=== PATIENT | female | born 1950 | race Hispanic/Latino ===

== ENCOUNTER 2017-07-16 05:56 | Day surgery (SDC) | payer BC, MEDICARE ==
[2017-07-16] MEDS ORDERED: ANCEF/STERILE WATER 2 GM/20 ML 2 GM/20 ML SYRINGE IV NR (06:00)
[2017-07-16] MEDS ORDERED: NACL 0.9% 1000 ML 1,000 ML IV SCH (06:00)
[2017-07-16 07:47] LABS: Basophils % (Auto) 0.6 % (0.0-1.8); Eosinophils % (Auto) 1.7 % (0.0-4.3); Hematocrit 46.1 % (30.3-42.9); Hemoglobin 15.3 gm/dl (10.1-14.3); Mean Corpuscular HGB Conc 33 % (30-34); Mean Corpuscular Hemoglobin 31 pg (28-32); Mean Corpuscular Volume 93 fl (79-97); Platelet Count 213 K/mm3 (140-440); Red Blood Count 4.98 M/mm3 (3.65-5.03); Red Cell Distribution Width 15.1 % (13.2-15.2); White Blood Count 7.6 K/mm3 (4.5-11.0)
[2017-07-16 07:57] LABS: Anion Gap 16 mmol/L; BUN/Creatinine Ratio 30; Blood Urea Nitrogen 18 mg/dL (7-17); Calcium 9.3 mg/dL (8.4-10.2); Carbon Dioxide 27 mmol/L (22-30); Chloride 98.6 mmol/L (98-107); Glucose 112 mg/dL (65-100); Potassium 4.2 mmol/L (3.6-5.0); Sodium 137 mmol/L (137-145)
[2017-07-16] MEDS ORDERED: NACL 0.9% 500 ML 500 ML IV SCH (08:00)
[2017-07-16] MEDS ORDERED: HEPARIN/NS 5000 UNIT/500ML(CATH LAB) 1,000 ML IR ONE (08:26)
[2017-07-16] MEDS ORDERED: ANCEF/STERILE WATER 2 GM/20 ML 2 GM/20 ML SYRINGE IV ONE (08:27)
[2017-07-16] MEDS ORDERED: NACL 0.9% 500 ML 0 ML ONE (08:28)
[2017-07-16] MEDS: VERSED ONE ×6 (08:48→10:01)
[2017-07-16] MEDS: SUBLIMAZE ONE ×5 (08:48→10:18)
[2017-07-16] MEDS: XYLOCAINE 2% INFILTRATI ONE ×2 (08:48→08:55)
[2017-07-16] MEDS ORDERED: BENADRYL ONE (08:56)
[2017-07-16] MEDS ORDERED: SUBLIMAZE ONE ×2 (09:06→09:14)
[2017-07-16] MEDS ORDERED: VERSED ONE (09:06)
[2017-07-16] MEDS: HEPARIN 10,000 UNITS/10 ML ONE ×2 (09:07→10:01)
[2017-07-16] MEDS ORDERED: HEPARIN/NS 5000 UNIT/500ML(CATH LAB) 500 ML IR ONE (09:40)
--- NOTE | 2017-07-16 10:49 | Post Operative Note ---
Date of procedure: 07/16/17 Pre-op diagnosis: left common iliac stenosis Post-op diagnosis: same Findings: 1. Lt JESSE GREEN CHAIN MARKER 2. RT JESSE stenosis Procedure: 1. Ultrasound guided access of the right and left common femoral arteries 2. Bilateral iliofemoral arteriography 3. Distal aortography 4. Bilateral iliofemoral and distal aortic intravascular ultrasound examination 5. Deployment of a VBX balloon expandable stent in the Rt JESSE 6. Deployment of a VBX balloon expandable stent in the Lt JESSE x2 7. Balloon angioplasty of the bilateral common iliac arteries 8. Bilateral DISTILLERY MILLER closure with a Perclose device. Anesthesia: other (Moderate sedation 8:56 to 10:30) Surgeon: SASHA BROWN Estimated blood loss: minimal Pathology: none Condition: stable Disposition: observation
[2017-07-16] MEDS ORDERED: NORCO 7.5/325 PO PRN (10:52)
[2017-07-16] MEDS ORDERED: DILAUDID IV PRN ×3 (10:53→13:00)
[2017-07-16] MEDS ORDERED: ZOFRAN IV PRN (10:53)
[2017-07-16] MEDS ORDERED: DILAUDID ONE ×2 (12:02)
--- NOTE | 2017-07-16 13:19 | Short Stay Summary ---
Short Stay Documentation Date of service: 07/16/17 - History H&P: obtained from office - Allergies and Medications Current Medications: Allergies Sulfa (Sulfonamide Antibiotics) Allergy (Verified 07/16/17 07:28) Rash Home Medications Medication Instructions Recorded Confirmed Last Taken Type Amlodipine Besylate [Norvasc] 5 mg PO QDAY 07/16/17 07/16/17 07/15/17 History Aspirin [Aspirin EC] 325 mg PO QDAY 07/16/17 07/16/17 07/15/17 History Atorvastatin Calcium [Lipitor] 20 mg PO QDAY 07/16/17 07/16/17 07/15/17 History Zestoretic 20-12.5 mg 2 tab PO QDAY 07/16/17 07/16/17 07/15/17 History Active Medications Acetaminophen/Hydrocodone Bitart ([place] 7.5/325) 1 each PO Q4H PRN PRN Reason: Pain, Moderate (4-6) Hydromorphone HCl (Dilaudid) 1 mg IV Q2H PRN PRN Reason: Pain , Severe (7-10) Last Admin: 07/16/17 12:05 Dose: 1 mg Cefazolin Sodium (Ancef/Sterile Water 2 Gm/20 Ml) 2 gm in 20 mls @ 80 mls/hr IV PREOP NR PRN Reason: Protocol Stop: 07/16/17 23:59 Sodium Chloride (Nacl 0.9% 500 Ml) 500 mls @ 50 mls/hr IV DIRECT RASHID Last Admin: 07/16/17 08:25 Dose: 50 mls/hr Ondansetron HCl (Zofran) 4 mg IV Q4H PRN PRN Reason: Nausea And Vomiting - Brief post op/procedure progress note Procedure: Brief Operative Note Patient Name: NEGIN ABEL Date of : 1950 Patient Status: Surgical Day Care Attending Provider: SASHA BROWN Date: 07/16/17 10:45 Initialization Date: 07/16/17 10:45 Date of procedure: 07/16/17 Pre-op diagnosis: left common iliac stenosis Post-op diagnosis: same Findings: 1. Lt JESSE ENVELOPE CUTTER 2. RT JESSE stenosis Procedure: 1. Ultrasound guided access of the right and left common femoral arteries 2. Bilateral iliofemoral arteriography 3. Distal aortography 4. Bilateral iliofemoral and distal aortic intravascular ultrasound examination 5. Deployment of a VBX balloon expandable stent in the Rt JESSE 6. Deployment of a VBX balloon expandable stent in the Lt JESSE x2 7. Balloon angioplasty of the bilateral common iliac arteries 8. Bilateral MAJOR APPLIANCE ASSEMBLY SUPERVISOR closure with a Perclose device. Anesthesia: other (Moderate sedation 8:56 to 10:30) Surgeon: SASHA BROWN Estimated blood loss: minimal Pathology: none Condition: stable Disposition: observation - Disposition Condition at discharge: Stable Disposition: [id number] TO HOME OR SELFCARE - Discharge Diagnoses (1) Iliac artery occlusion Status: Acute (2) Stenosis of iliac artery Status: Acute Short Stay Discharge Plan Activity: advance as tolerated Weight Bearing Status: Weight Bear as Tolerated Diet: regular Wound: keep clean and dry Follow up with: SASHA BROWN MD [Staff Physician] - 14 Days Forms: Post Arteriogram Instruct, Post Sedation D/C Instructions
[2017-07-16 13:31] VITALS: BP 162/84
--- NOTE | 2017-07-17 07:54 | Vascular Lab Report ---
MISCELLANEOUS VESSEL IDENTIFICATION: COMMENTS ON THE SCAN: The bilateral common femoral arteries were identified and under real-time ultrasound guidance was cannulated. IMPRESSION: Successful ultrasound guided arterial cannulation.
--- NOTE | 2017-07-24 21:32 | Operative Report ---
PREOPERATIVE DIAGNOSIS: Left common iliac artery occlusion with disabling claudication. POSTPROCEDURE DIAGNOSIS: Bilateral common iliac artery stenosis with left common iliac artery occlusion. OPERATIVE PROCEDURES: 1. Ultrasound-guided access to both right and left common femoral arteries. 2. Deployment of the VBX balloon expandable stent with angioplasty, right common iliac artery. 3. Deployment of VBX balloon expandable stent in the left common iliac artery (x 2) with angioplasty. 4. Intravascular ultrasound of the abdominal aorta. 5. Intravascular ultrasound of the left common iliac artery and external iliac artery. 6. Intravascular ultrasound of the right common iliac artery and external iliac artery. 7. Bilateral aortogram with iliofemoral runoff. 8. Crossing of a chronically occluded left common iliac artery. SURGEON: Baron Evans M.D. ASSOCIATE TEACHER: None. ANESTHESIA: Moderate sedation beginning at 0856 and terminating at 1030 time monitored by the surgeon. ESTIMATED BLOOD LOSS: Minimal. COMPLICATIONS: None. PAST SPECIMENS: None. CONDITION: Stable at the completion of the procedure. SURGICAL INDICATIONS: The patient with known disabling thigh, buttock claudication and previous kissing balloon iliac stents placed, presents to the office with an occluded left common iliac artery stent and severe disabling claudication on the right with some minor claudication on the left, although distance is severely limited secondary to the left side. The patient failed medical management and was admitted for angiography and possible revascularization. DESCRIPTION OF PROCEDURE: With the patient in supine position, both groins were then prepped and draped using standard sterile technique. Moderate sedation was administered under the guidance of the surgeon, me via the engineer geophysical laboratory nurses. The left common iliac artery, which was nonpalpable was identified using duplex scan and do anesthetize the skin with micropuncture technique. The guidewire was advanced retrograde into the distal common iliac artery where it promptly stopped. I then upsized to a 6-Norwegian introducer and angiogram, which confirmed patency of the common femoral, external iliac and distal common iliac arteries and internal iliac. These films were not readily available as previous angiogram failed to delineate significant anatomy on the left. I then heparinized the patient and then using several different guidewires and a balloon centering technique along with a long 7-Norwegian [place] destination sheath, I was able to cannulate and successfully cross the occluded stent and found my catheter in the abdominal aorta. Angiography was then performed, which confirmed intraluminal positioning of the catheter and aorta that was diseased, but not stenotic kissing balloons of which the right side was patent, although it appeared to be narrowed at its origin and had a totally occluded left common iliac stent, which now was traversed via catheter. I then obtained, the intravascular ultrasound and advanced it up the right side and through the occluded segment, made appropriate sizing of the vessel and entered the aorta. I was suggested that there may be crimping of the contralateral stent. At this point, I then accessed the right common femoral artery again using duplex guidance and advanced the guidewire and sheath retrograde. The IVUS was then advanced, which showed not only that the part of the right stent was in fact narrowed, but there was significant in-stent stenosis of at least 70% on the right, which if relieved the claudication on left, would certainly be a symptomatic lesion. In addition, it was determined that I would need to place covered stents on the left side and that necessitated a covered stent on the right as each stent was going to have to extend a millimeter or two above the previous stents in order to be successful. At this point, I then upsized to the appropriate sized sheath on each side (I believe they are 7-Norwegian) and then obtained a 7 x 47 VBX balloon expandable stent and advanced it across the occluded segment on the left after predilatation using a 5 mm balloon. On the right, I advanced a similar sized stent up the right side and then in kissing balloon technique deployed both stents alleviating the entire stenotic lesions on the right iliac and advancing through most of the occluded segment on the left. There was still a segment of stent with residual stenosis below it on the left and then obtained a third VBX balloon expandable stent graft and deployed it with a minimal overlap distally so as to preserve the internal iliac. Once all these stent grafts were posted, I then repeated the IVUS which showed a dramatic improvement in blood flow bilaterally with resolution of the stenosis. Repeat contrast injection confirmed this impression. At this point, I felt that the patient had delineated maximal benefit and we had achieved the anatomic results that we were looking for. I then removed guidewires and catheters and then each sheath was removed over a ProGlide closure device. Hemostasis was excellent. The patient returned to the recovery room in stable condition having tolerated the procedure well. She now had palpable pulses in both feet, which was a new development bilaterally. I felt that we had probably significantly improved if not limited claudication on the left and probably prevented any claudication on the right. JOB# [id number] BRITTNEY/ALE
== END 2017-07-16 13:50 | disposition home or self-care (01) ==
LOC: CATHLABREC 05:56
PROVIDERS: ATTEND Surgery Vascular Surgery
DX: T82.856A Stenosis of peripheral vascular stent, initial encounter (principal); I70.213 Atherosclerosis of native arteries of extremities with intermittent claudication, bilateral legs; I10 Essential (primary) hypertension; E78.5 Hyperlipidemia, unspecified; F17.210 Nicotine dependence, cigarettes, uncomplicated; Z79.82 Long term (current) use of aspirin; Z79.899 Other long term (current) drug therapy; Z90.49 Acquired absence of other specified parts of digestive tract; Z90.710 Acquired absence of both cervix and uterus; Y83.1 Surgical operation with implant of artificial internal device as the cause of abnormal reaction of the patient, or of later complication, without mention of misadventure at the time of the procedure
CPT/HCPCS: 36415; 37221; 37252; 37253; 76937; 80048; 85025; 99156; 99157; C1725; C1751; C1753; C1760; C1769; C1894; J0690; J1200; J1644; J2250; J2405; J3010; J7040; J1170; Q9967